=== PATIENT | male | born 1955 | race Caucasian/White ===

== ENCOUNTER 2023-01-07 08:07 | Emergency (ER) | payer MEDICARE, MEDICAID ==
[2023-01-07] VITALS (22 sets, daily range): BP systolic 128–157; BP diastolic 87–107
[~2023-01-07] VITALS: Ht 188 cm; Wt 72.5 kg
[2023-01-07 09:39] LABS: BASO% 0.3 % (0-3); EOS% 0.7 % (0-8); HEMATOCRIT 44.5 % (39.0-50.0); HEMOGLOBIN 15.5 g/dl (14.0-18.0); IMMATURE GRANULOCYTES 0.3 % (0.0-5.0); LYMPH% 24.5 % (15-41); MEAN CELL VOLUME 97.6 fL CALC (80.0-100.0); MEAN CORPUSCULAR HGB CONC 34.8 g/dL CAL (32.0-36.0); MONO% 8.4 % (2-13); NEUT# 7.95 thou/uL (1.82-7.42); NEUT% 65.8 % (42-76); RED BLOOD COUNT 4.56 mill/uL (4.70-6.10); RED CELL DISTRI WIDTH 13.1 % (11.5-15.5)
[2023-01-07 10:14] LABS: ALBUMIN 4.1 g/dL (3.2-5.0); ALKALINE PHOSPHATASE 110 u/l (38-126); AMYLASE 98 u/l (30-110); ANION GAP 12 (6-22 (CALC)); BUN 12 mg/dL (8-23); BUN/CREATININE RATIO 8 (12-20 (CALC)); CARBON DIOXIDE 28 mmol/l (22-30); CHLORIDE 96 mmol/l (95-108); CREATININE 1.5 mg/dL (0.7-1.3); GFR FOR AFR.AMER. 56 ML/MIN (>=60 (CALC)); GFR OTHER RACES 47 ML/MIN (>=60 (CALC)); LIPASE 157 u/l (23-300); SGOT/AST 43 u/l (19-48); SODIUM 133 mmol/l (137-146); TOTAL PROTEIN 7.8 g/dL (6.3-8.2)
[2023-01-07 12:31] LABS: URINE BLOOD DIPSTICK Negative (NEGATIVE); URINE GLUCOSE - DIPSTICK Negative (NEGATIVE); URINE KETONE 15 mg/dL (NEGATIVE); URINE LEUK ESTERASE Negative (NEGATIVE); URINE NITRITE - DIPSTICK Negative (Negative); URINE PH 5.5 (4.5-8.0); URINE PROTEIN - DIPSTICK 100 mg/dL (NEG-TRACE); URINE SPECIFIC GRAVITY 1.025
[2023-01-07 12:32] LABS: URINE COLOR Amber
[2023-01-07 12:36] LABS: URINE HYALINE CAST FEW lpf (NONE-RARE); URINE WBC 0-2 WBC/hpf (0-5)
[2023-01-07 12:37] LABS: URINE MUCUS FEW hpf (NONE-FEW)
[2023-01-07] MEDS ORDERED: LEVSIN/SL0.125 MG SL (13:25)
[2023-01-07] MEDS ORDERED: KLONOPIN1 MG PO (13:25)
== END 2023-01-07 14:00 | disposition home or self-care (01) ==
LOC: ED 08:07
PROVIDERS: Family Medicine
DX: K50.90 Crohn's disease, unspecified, without complications (principal); F10.20 Alcohol dependence, uncomplicated; F41.1 Generalized anxiety disorder
CPT/HCPCS: Q9967; S0164